=== PATIENT | female | born 1975 | race Caucasian/White ===

== ENCOUNTER 2019-07-07 15:22 | Emergency (ER) | payer MEDICAID ==
[~2019-07-07] VITALS: Ht 162.6 cm; Wt 93.7 kg
[2019-07-07 15:27] VITALS: Ht 162.6 cm; Wt 93.7 kg
[2019-07-07] MEDS ORDERED: NEURONTIN 300300 MG PO (15:30)
[2019-07-07] MEDS ORDERED: BACLOFEN10 MG PO (15:30)
[2019-07-07] MEDS ORDERED: MOBIC7.5 MG PO (15:30)
[2019-07-07] MEDS ORDERED: ROBAXIN500 MG PO (16:13)
[2019-07-07] MEDS ORDERED: TORADOL10 MG PO (16:13)
[2019-07-07 17:08] VITALS: BP 118/68
== END 2019-07-07 17:09 | disposition home or self-care (01) ==
LOC: D.ER 15:22
DX: S33.5XXA Sprain of ligaments of lumbar spine, initial encounter (principal); W19.XXXA Unspecified fall, initial encounter; F17.200 Nicotine dependence, unspecified, uncomplicated

== ENCOUNTER → 2019-08-27 09:42 | Outpatient (CLI) | payer MEDICAID ==
[2019-07-07 15:27] VITALS: BMI 35.4
[~2019-08-27 09:42] MED LIST: BACLOFEN10 MG PO; MOBIC7.5 MG PO; NEURONTIN 300300 MG PO; ROBAXIN500 MG PO; TORADOL10 MG PO
== END | disposition home or self-care (01) ==
LOC: D.US 09:42
PROVIDERS: ATTEND Family Medicine
DX: N92.6 Irregular menstruation, unspecified (principal)